=== PATIENT | female | born 1980 | race Caucasian/White ===

== ENCOUNTER → 2021-04-01 | Outpatient (CLI) | payer BC ==
[~2021-04-01] MED LIST: PRAMET FA TAB1 EA PO
== END ==
LOC: KOH-I 08:13
DX: R10.11 Right upper quadrant pain (principal); R07.81 Pleurodynia
CPT/HCPCS: 71100; 74018

== ENCOUNTER → 2021-04-04 | Outpatient (CLI) | payer BC | LOC: KOH-I 08:19 | DX: R10.11 Right upper quadrant pain (principal); K76.0 Fatty (change of) liver, not elsewhere classified; K80.20 Calculus of gallbladder without cholecystitis without obstruction | CPT/HCPCS: 76705 ==

== ENCOUNTER → 2021-04-29 | Outpatient (CLI) | payer BC | LOC: NM 12:42 | DX: R10.11 Right upper quadrant pain (principal) | CPT/HCPCS: 78226; A9537 ==

== ENCOUNTER → 2021-05-14 | Day surgery (SDC) | payer BC ==
[~2021-05-14] MED LIST changes: +FLONASE SPRAY; +IBUPROFEN200 MG PO; +ZOFRAN4 MG PO
== END | disposition home or self-care (01) ==
LOC: OR 06:58
DX: K80.12 Calculus of gallbladder with acute and chronic cholecystitis without obstruction (principal); E78.5 Hyperlipidemia, unspecified; G47.30 Sleep apnea, unspecified; Z87.891 Personal history of nicotine dependence; Z88.5 Allergy status to narcotic agent; Z79.1 Long term (current) use of non-steroidal anti-inflammatories (NSAID); Z79.899 Other long term (current) drug therapy
CPT/HCPCS: 84703; J0690; J1100; J1170; J1885; J2001; J2250; J2405; J2704; J2710; J3010; J7030; J7120